=== PATIENT | male | born 1985 | race Caucasian/White ===

== ENCOUNTER 2021-05-21 18:30 | Emergency (ER) | payer OTHER ==
[~2021-05-21] VITALS: Ht 185.4 cm; Wt 79.8 kg
[2021-05-21 18:43] VITALS: BP_SYST 100
[2021-05-21 19:41] VITALS: BP_SYST 96
== END 2021-05-21 19:48 | disposition home or self-care (01) ==
LOC: SED 18:30
DX: Z04.1 Encounter for examination and observation following transport accident (principal); V49.49XA Driver injured in collision with other motor vehicles in traffic accident, initial encounter; Y93.89 Activity, other specified; Y92.89 Other specified places as the place of occurrence of the external cause; Y99.8 Other external cause status
CPT/HCPCS: 99283